=== PATIENT | male | born 1970 | race African-American/Black ===

== ENCOUNTER 2020-05-05 14:49 | Outpatient (REF) | payer MEDICARE, MEDICAID, SELFPAY | END 2020-05-05 14:50 | disposition home or self-care (01) | LOC: HO.LAB 14:49 | PROVIDERS: Visit Provider Internal Medicine | DX: Z20.828 Contact with and (suspected) exposure to other viral communicable diseases (principal) | CPT/HCPCS: C9803; U0003 ==